=== PATIENT | male | born 1990 ===

== ENCOUNTER 2019-07-02 11:08 | Emergency (ER) | payer SELFPAY ==
[2019-07-02] MEDS ORDERED: Proparacaine 0.5% Opth 15 ML BOT ONE (12:54)
[2019-07-02] MEDS ORDERED: Fluorescein Opthalmic Strip ONE (12:54)
== END 2019-07-02 13:30 | disposition home or self-care (01) ==
LOC: ERS 11:08
DX: S05.01XA Injury of conjunctiva and corneal abrasion without foreign body, right eye, initial encounter (principal); Z77.098 Contact with and (suspected) exposure to other hazardous, chiefly nonmedicinal, chemicals; X58.XXXA Exposure to other specified factors, initial encounter
CPT/HCPCS: 99283